=== PATIENT | female | born 1965 | race Caucasian/White ===

== ENCOUNTER 2022-03-16 06:08 | Day surgery (SDC) | payer OTHER ==
[~2022-03-16] VITALS: Ht 168.9 cm; Wt 122.7 kg
[2022-03-16] MEDS ORDERED: BENZOCAINE 20% 50 MCG/SPRAY 57 GM TP ONE (06:09)
[2022-03-16] MEDS ORDERED: LIDOCAINE 4% 50 ML SOLUTION TP ONE (06:09)
[2022-03-16] MEDS ORDERED: LIDOCAINE 2% 11 ML JELLY TP ONE (06:09)
[2022-03-16] MEDS ORDERED: SODIUM CHLORIDE 0.9% 1,000 ML IV ONE (06:30)
[2022-03-16] MEDS ORDERED: SODIUM CHLORIDE 0.9% 1,000 ML ONE (06:40)
[2022-03-16 06:44] LABS: COVID AG,FIA SOURCE NASOPHARYNGEAL
[2022-03-16] MEDS ORDERED: OMEP20 PO (07:11)
[2022-03-16] MEDS ORDERED: METO50 PO (07:11)
[2022-03-16] MEDS ORDERED: FREM225S SQ (07:11)
[2022-03-16] MEDS ORDERED: TOPI25 PO (07:11)
[2022-03-16] MEDS ORDERED: SUMA25TA9 PO (07:11)
[2022-03-16] MEDS ORDERED: CHOL4PAC8 PO (07:11)
[2022-03-16] MEDS ORDERED: BOTU100I SQ (07:11)
[2022-03-16] MEDS ORDERED: UBRO100T PO (07:11)
[2022-03-16] MEDS ORDERED: DULO-113 PO (07:11)
[2022-03-16] MEDS ORDERED: MIDAZOLAM HCL 5 MG/ML VIAL ONE (07:38)
[2022-03-16] MEDS ORDERED: FentaNYL CITRATE PF 100 MCG/2 ML VIAL ONE (07:38)
[2022-03-16] MEDS ORDERED: SODIUM CHLORIDE 0.9% 10 ML ONE (08:09)
[2022-03-16] MEDS ORDERED: MethylPREDNISolone SOD SUCC 125 MG/2 ML VIAL IVP ONE (09:30)
[2022-03-16] MEDS ORDERED: MethylPREDNISolone SOD SUCC 125 MG/2 ML VIAL ONE (10:02)
[2022-03-16] MEDS ORDERED: OXYGEN THERAPY IH SCH (20:00)
== END 2022-03-16 12:45 ==
LOC: SURGERY 06:08
PROVIDERS: ATTEND Internal Medicine Critical Care Medicine
DX: J38.4 Edema of larynx (principal); B37.0 Candidal stomatitis; Z79.899 Other long term (current) drug therapy; Z90.710 Acquired absence of both cervix and uterus; Z90.49 Acquired absence of other specified parts of digestive tract; Z98.890 Other specified postprocedural states
CPT/HCPCS: 31623; 88112; 87206; 87101; 87220; 87070; 88305; 88312; 31624; 71045; 87015; 87426; J3010; J2930; J2250; Q9967; J7030; C9803; Z7610